=== PATIENT | male | born 1950 | race Caucasian/White ===

== ENCOUNTER 2021-09-12 11:52 | Emergency (ER) | payer BC, MEDICARE, OTHER ==
[2021-09-12 12:31] VITALS: BP 179/115; PULSE 133
[2021-09-12] MEDS ORDERED: Sodium Chloride 0.9% 10 ML Syringe FLUSH PRN (12:34)
[2021-09-12] MEDS ORDERED: Sodium Chloride 0.9% 1,000 ML IV STA (13:04)
[2021-09-12] MEDS ORDERED: Ondansetron 4 MG/2 ML SDV IVPUSH ONE (13:04)
[2021-09-12 14:14] LABS: ESTIMATED GFR > 60 mL/min (>60)
[2021-09-12 14:23] LABS: CORONAVIRUS COVID-19 NAA NEGATIVE (NEGATIVE)
[2021-09-12] MEDS ORDERED: Oseltamivir 75 MG Cap PO ONE (14:41)
[2021-09-12] MEDS ORDERED: Alum Hydrox/Mag Hydrox/Simeth 30 ML, Lidocaine 2% 15 ML PO ONE ×2 (14:42)
[2021-09-12] MEDS ORDERED: Acetaminophen 325 MG Tab PO ONE (14:42)
== END 2021-09-12 15:25 | disposition home or self-care (01) ==
LOC: JD.ED 11:52
DX: J10.1 Influenza due to other identified influenza virus with other respiratory manifestations (principal); I25.10 Atherosclerotic heart disease of native coronary artery without angina pectoris; E78.00 Pure hypercholesterolemia, unspecified; I10 Essential (primary) hypertension; I25.2 Old myocardial infarction; K21.9 Gastro-esophageal reflux disease without esophagitis; Z86.73 Personal history of transient ischemic attack (TIA), and cerebral infarction without residual deficits; Z79.899 Other long term (current) drug therapy; Z20.822 Contact with and (suspected) exposure to COVID-19
CPT/HCPCS: 0240U; 36415; 71045; 80053; 84484; 85025; 86140; 93005; 96374; 99285; A9270; J2405; J3490; J7030; 93010; 99284

== ENCOUNTER 2022-04-27 20:04 | Emergency (ER) | payer BC, MEDICARE ==
[2022-04-27] MEDS ORDERED: Ondansetron 4 MG/2 ML SDV ONE (20:42)
[2022-04-27] MEDS ORDERED: HYDROmorphone 1 MG/ML Syringe IVPUSH STA (20:45)
[2022-04-27] MEDS ORDERED: Sodium Chloride 0.9% 1,000 ML IV SCH (20:45)
[2022-04-27] MEDS ORDERED: Sodium Chloride 0.9% 10 ML Syringe FLUSH PRN (20:45)
[2022-04-27] MEDS ORDERED: Tamsulosin 0.4 MG Cap.ER PO STA (20:45)
[2022-04-27 21:50] LABS: CORONAVIRUS COVID-19 NAA NEGATIVE (NEGATIVE)
[2022-04-28] MEDS ORDERED: Prochlorperazine 10 MG in Sodium Chloride 0.9% 50 ML IV ONE (00:51)
[2022-04-28] MEDS ORDERED: Alum Hydrox/Mag Hydrox/Simeth 30 ML, Lidocaine 2% 15 ML PO ONE ×2 (00:52)
[2022-04-28] MEDS ORDERED: Lactated Ringers 1,000 ML IV SCH (08:00)
[2022-04-28] MEDS ORDERED: cefTRIAXone 2 GM in Sodium Chloride 0.9% 100 ML IV ONE (10:45)
[2022-04-28] MEDS ORDERED: HYDROmorphone 0.5 MG/0.5 ML Syringe IVPUSH ONE (12:44)
[2022-04-28] MEDS ORDERED: Pantoprazole 40 MG in Sodium Chloride 0.9% 100 ML IV ONE (12:44)
[2022-04-28] MEDS ORDERED: Pantoprazole 40 MG Vial IVPUSH ONE (13:00)
[2022-04-28] MEDS ORDERED: Ondansetron 4 MG/2 ML SDV IVPUSH ONE (13:16)
[2022-04-28 14:59] VITALS: BP 142/94; PULSE 98
== END 2022-04-28 16:13 ==
LOC: JD.ED 20:04
DX: K80.40 Calculus of bile duct with cholecystitis, unspecified, without obstruction (principal); E31.21 Multiple endocrine neoplasia [MEN] type I; I25.810 Atherosclerosis of coronary artery bypass graft(s) without angina pectoris; E78.00 Pure hypercholesterolemia, unspecified; I10 Essential (primary) hypertension; K21.9 Gastro-esophageal reflux disease without esophagitis; Z79.02 Long term (current) use of antithrombotics/antiplatelets; Z79.899 Other long term (current) drug therapy; Z20.822 Contact with and (suspected) exposure to COVID-19
CPT/HCPCS: 0241U; 36415; 70250; 74176; 74181; 76705; 80053; 81001; 82977; 83605; 83690; 85025; 86140; 87040; 96361; 96365; 96367; 96375; 96376; 99285; A9270; C9113; J0696; J0780; J1170; J2405; J3490; J7030; J7120

== ENCOUNTER 2023-01-30 19:48 | Emergency (ER) | payer BC, MEDICARE ==
[2023-01-30] MEDS ORDERED: Lidocaine 2% with EPINEPHrine 1:200,000 20 ML SDV ONE (20:12)
[2023-01-30] MEDS ORDERED: Lidocaine 2% with EPINEPHrine 1:100,000 20 ML MDV INJECT ONE (20:21)
[2023-01-30 20:56] VITALS: BP 149/84; PULSE 72
== END 2023-01-30 20:48 | disposition home or self-care (01) ==
LOC: JD.ED 19:48
DX: L76.22 Postprocedural hemorrhage of skin and subcutaneous tissue following other procedure (principal); I25.10 Atherosclerotic heart disease of native coronary artery without angina pectoris; E78.00 Pure hypercholesterolemia, unspecified; I10 Essential (primary) hypertension; I25.2 Old myocardial infarction; Z86.73 Personal history of transient ischemic attack (TIA), and cerebral infarction without residual deficits; F17.210 Nicotine dependence, cigarettes, uncomplicated; Z79.899 Other long term (current) drug therapy
CPT/HCPCS: 99282; 99283; J3490

== ENCOUNTER 2024-01-09 19:18 | Emergency (ER) | payer MEDICARE, BC ==
[2024-01-09 19:43] VITALS: BP 150/78; PULSE 76
[2024-01-09 20:02] LABS: BASOPHILS PERCENT AUTO 0.2 % (0.0-1.0); EOSINOPHILS ABSOLUTE AUTO 0.1 K/mm3 (0.0-0.4); EOSINOPHILS PERCENT AUTO 1.5 % (0.0-6.0); HEMATOCRIT 44.8 % (42.0-52.0); IMMATURE GRAN ABSOLUTE AUTO 0.04 K/mm3 (0.00-0.05); IMMATURE GRAN PERCENT AUTO 0.4 % (0.0-0.4); LYMPHOCYTES ABSOLUTE AUTO 2.7 K/mm3 (1.0-4.8); MEAN CORPUSCULAR HEMOGLOBIN 31.5 pg (28.0-32.0); MEAN CORPUSCULAR HGB CONC 33.5 g/dl (32.0-36.0); MEAN CORPUSCULAR VOLUME 94.1 fl (83.0-99.0); MEAN PLATELET VOLUME 10.5 fl (9.4-12.4); MONOCYTES ABSOLUTE AUTO 0.9 K/mm3 (0.0-0.8); MONOCYTES PERCENT AUTO 9.8 % (0.0-8.0); NEUTROPHILS ABSOLUTE AUTO 5.5 K/mm3 (1.8-7.7); NEUTROPHILS PERCENT AUTO 59.1 % (41.0-71.0); PLATELET COUNT,PLT 188 K/mm3 (150-400); RED BLOOD CELL COUNT 4.76 M/mm3 (4.52-5.90); WHITE BLOOD CELL COUNT,WBC 9.29 K/mm3 (3.9-11.3)
[2024-01-09 20:10] LABS: INR 1.05; PROTHROMBIN TIME 11.1 SECONDS (9.7-12.0)
[2024-01-09 20:11] LABS: PTT,PARTIAL THROMBOPLSTIN TIME 23.9 SECONDS (21.7-31.4)
[2024-01-09 20:24] LABS: A/G RATIO 1.1 (1-2); ALBUMIN 3.5 g/dl (3.4-5.0); ANION GAP 15.8 (5-15); BILIRUBIN TOTAL 0.4 mg/dL (0.2-1.0); CALCIUM 9.4 mg/dL (8.5-10.1); CREATININE 1.5 mg/dL (0.7-1.3); EST CRCL DRUG DOSING (CG) 42.23 mL/min; MAGNESIUM 1.6 mg/dL (1.8-2.4); POTASSIUM,K 3.8 mEq/L (3.5-5.1); PROTEIN TOTAL,TP 6.8 g/dl (6.4-8.2)
[2024-01-09] MEDS: Iopamidol 755 Mg/ML 100 ML Bottle IVPUSH ONE (21:30)
[2024-01-09] MEDS: Magnesium Oxide 400 MG Tab PO ONE (21:34)
[2024-01-09] MEDS: Lactated Ringers 1,000 ML IV SCH (21:34)
[2024-01-09] MEDS: Clopidogrel 75 MG Tab PO ONE (21:34)
== END 2024-01-09 22:46 | disposition home or self-care (01) ==
LOC: JD.ED 19:18
DX: R07.2 Precordial pain (principal); N20.0 Calculus of kidney; N28.9 Disorder of kidney and ureter, unspecified; K44.9 Diaphragmatic hernia without obstruction or gangrene; R79.89 Other specified abnormal findings of blood chemistry; I10 Essential (primary) hypertension; I25.10 Atherosclerotic heart disease of native coronary artery without angina pectoris; I25.2 Old myocardial infarction; E78.00 Pure hypercholesterolemia, unspecified; Z86.73 Personal history of transient ischemic attack (TIA), and cerebral infarction without residual deficits; Z79.899 Other long term (current) drug therapy; Z79.02 Long term (current) use of antithrombotics/antiplatelets
CPT/HCPCS: 36415; 71045; 71275; 80053; 83735; 83880; 84484; 85025; 85379; 85610; 85730; 93005; 99285; A9270; J7120; Q9967; 93010; 99284

== ENCOUNTER 2025-03-04 13:15 | Emergency (ER) | payer MEDICARE ==
[2025-03-04] MEDS ORDERED: Sodium Chloride 0.9% 10 ML Syringe FLUSH PRN (13:50)
[2025-03-04] MEDS: Ondansetron 4 MG/2 ML SDV IVPUSH ONE (14:12)
[2025-03-04 14:16] LABS: BASOPHILS ABSOLUTE AUTO 0.0 K/mm3 (0.0-0.2); BASOPHILS PERCENT AUTO 0.3 % (0.0-1.0); EOSINOPHILS ABSOLUTE AUTO 0.1 K/mm3 (0.0-0.4); EOSINOPHILS PERCENT AUTO 0.4 % (0.0-6.0); IMMATURE GRAN ABSOLUTE AUTO 0.06 K/mm3 (0.00-0.05); IMMATURE GRAN PERCENT AUTO 0.5 % (0.0-0.4); LYMPHOCYTES ABSOLUTE AUTO 1.1 K/mm3 (1.0-4.8); LYMPHOCYTES PERCENT AUTO 8.4 % (24.0-44.0); MEAN PLATELET VOLUME 10.2 fl (9.4-12.4); MONOCYTES ABSOLUTE AUTO 0.9 K/mm3 (0.0-0.8); MONOCYTES PERCENT AUTO 7.0 % (0.0-8.0); NEUTROPHILS ABSOLUTE AUTO 10.9 K/mm3 (1.8-7.7); NEUTROPHILS PERCENT AUTO 83.4 % (41.0-71.0); NRBC ABSOLUTE 0.00 (0.00-0.02); NRBC PERCENT 0.0 % (0.0-0.2); PLATELET COUNT,PLT 173 K/mm3 (150-400); RED BLOOD CELL COUNT 5.14 M/mm3 (4.52-5.90); WHITE BLOOD CELL COUNT,WBC 13.08 K/mm3 (3.9-11.3)
[2025-03-04 14:36] LABS: INR 1.06
[2025-03-04 14:38] LABS: PTT,PARTIAL THROMBOPLSTIN TIME 22.2 SECONDS (21.7-31.4)
[2025-03-04 14:39] LABS: A/G RATIO 1.0 (1-2); ALANINE AMINOTRANSFERASE,ALT 24.0 U/L (16-63); ASPARTATE AMNIOTRANSFERASE,AST 23.0 U/L (15-37); BILIRUBIN TOTAL 1.0 mg/dL (0.2-1.0); BLOOD UREA NITROGEN,BUN 28.0 mg/dL (7-18); CARBON DIOXIDE,CO2 27.0 mEq/L (21-32); CHLORIDE,CL 107.0 mEq/L (98-107); CREATININE 1.6 mg/dL (0.7-1.3); EST CRCL DRUG DOSING (CG) 39.02 mL/min; ESTIMATED GFR 46.0 mL/min (>60); GLUCOSE RANDOM 167.0 mg/dL (70-99); POTASSIUM,K 3.8 mEq/L (3.5-5.1); PROTEIN TOTAL,TP 7.2 g/dl (6.4-8.2); SODIUM,NA 144.0 mEq/L (136-145)
[2025-03-04] MEDS ORDERED: Iopamidol 612 MG/ML 100 ML Bottle IVPUSH ONE (14:58)
[2025-03-04] MEDS: Sodium Chloride 0.9% 10 ML Syringe FLUSH ONE (15:14)
[2025-03-04 17:27] VITALS: BP 152/100; PULSE 78
== END 2025-03-04 17:20 | disposition home or self-care (01) ==
LOC: JD.ED 13:15
DX: K44.9 Diaphragmatic hernia without obstruction or gangrene (principal); R11.2 Nausea with vomiting, unspecified; I25.10 Atherosclerotic heart disease of native coronary artery without angina pectoris; I25.2 Old myocardial infarction; E78.00 Pure hypercholesterolemia, unspecified; K21.9 Gastro-esophageal reflux disease without esophagitis; Z79.899 Other long term (current) drug therapy; Z79.02 Long term (current) use of antithrombotics/antiplatelets
CPT/HCPCS: 36415; 71045; 74177; 80053; 83690; 85025; 85610; 85730; 96361; 96374; 96375; 99284; J1308; J2405; J7030; J1171

== ENCOUNTER 2025-03-13 18:45 | Emergency (ER) | payer MEDICARE ==
[2025-03-13 19:40] VITALS: BP 145/121; PULSE 107
== END 2025-03-13 20:15 ==
LOC: JD.ED 18:45
DX: Z53.21 Procedure and treatment not carried out due to patient leaving prior to being seen by health care provider (principal)